=== PATIENT | male | born 1955 | race Caucasian/White ===

== ENCOUNTER 2021-03-29 17:12 | Inpatient (IN) ==
[2021-03-29 17:51] LABS: Basophils % 0.4 %; Eosinophils % 0.4 %; Hematocrit 33.5 % (37.5-50.1); Hemoglobin 10.9 g/dL (12.9-16.9); Immature Granulocytes % 0.4 % (0-4); Lymphocytes # 1.4 K/mcL (0.6-4.6); Lymphocytes % 13.6 %; Mean Corpuscular HGB Conc 32.5 g/dL (31.6-35.5); Mean Corpuscular Hemoglobin 27.1 pg (28.0-33.3); Mean Corpuscular Volume 83.3 fL (83.0-100.0); Mean Platelet Volume 11.3 fL (9.4-12.4); Monocytes # 0.9 K/mcL (0.0-1.3); Monocytes % 8.3 %; Neutrophils # 8.1 K/mcL (1.6-8.9); Platelet Count 130 K/mcL (140-400); Red Blood Count 4.02 M/mcL (4.19-5.50); Segmented Neutrophils % 76.9 %; White Blood Count 10.5 K/mcL (4.3-11.1)
[2021-03-29] MEDS ORDERED: Isovue-370 500 ML BOTTLE IVP ONE (17:58)
[2021-03-29] MEDS ORDERED: *HR* FentaNYL (PF) 100 MCG/2 ML VIAL IVP ONE (18:00)
[2021-03-29] MEDS ORDERED: 0.9 % Sodium Chloride 1,000 ML IVC ONE (18:00)
[2021-03-29 18:09] LABS: Activated Partial Thrombo Time 27.2 Seconds (26.0-36.0)
[2021-03-29 18:15] LABS: INR 1.2; Prothrombin Time 14.3 Seconds (9.4-12.1)
[2021-03-29 18:28] LABS: BUN/Creatinine Ratio 14 (6-26); Blood Urea Nitrogen 12 mg/dL (8-23); Calcium 8.6 mg/dL (8.6-10.3); Carbon Dioxide 26 mEq/L (23-29); Chloride 101 mEq/L (98-107); Glucose 259 mg/dL (70-105); Osmolality,Calculated 289 (280-300); Potassium 3.7 mEq/L (3.5-5.1); Sodium 135 mEq/L (136-145); Troponin I 0.23 ng/mL (< 0.04); eGFR For African Americans > 60 (> 60); eGFR For Non-African Americans > 60 (> 60)
[2021-03-29] MEDS ORDERED: cefTRIAXone 1,000 MG in Water for inj. (sterile) 10 ML IVP ONE (19:31)
[2021-03-29] MEDS ORDERED: Azithromycin 500 MG in 0.9 % Sodium Chloride 250 ML IVPB ONE (19:31)
[2021-03-29] MEDS ORDERED: Aspirin 325 MG TABLET PO ONE (20:53)
[2021-03-29] MEDS ORDERED: Ipratropium/Albuterol Neb 3 ML IH PRN (21:03)
[2021-03-29] MEDS ORDERED: Ondansetron 4 MG/2 ML VIAL IVP PRN (21:04)
[2021-03-29] MEDS ORDERED: D5% in Water 1,000 ML IVC PRN (21:04)
[2021-03-29] MEDS ORDERED: Dextrose Gel 15 GM/37.5 ML TUBE PO PRN ×2 (21:04)
[2021-03-29] MEDS ORDERED: *HR* Dextrose 50 % in Water (Vial) 50 ML VIAL IVP PRN (21:04)
[2021-03-29] MEDS ORDERED: Naloxone 0.4 MG/ML INJ IVP PRN (21:04)
[2021-03-29] MEDS ORDERED: Acetaminophen 325 MG TABLET PO PRN (21:04)
[2021-03-29] MEDS ORDERED: Insulin LISPRO 300 UNITS/3 ML VIAL SUBQ SCH (21:15)
[2021-03-29] MEDS ORDERED: Perflutren Lipid Microsphere 1.3 ML in 0.9 % Sodium Chloride 8.7 ML IVP PRN (22:08)
[2021-03-29] MEDS: Insulin LISPRO 300 UNITS/3 ML VIAL SUBQ SCH (22:37)
[2021-03-29] MEDS: *HR* HYDROcodone/Acet 5/325 mg TABLET PO PRN (22:50)
[2021-03-30 00:47] LABS: Basophils % 0.3 %; Eosinophils % 0.2 %; Hemoglobin 10.7 g/dL (12.9-16.9); Immature Granulocytes % 0.3 % (0-4); Lymphocytes # 1.4 K/mcL (0.6-4.6); Mean Corpuscular HGB Conc 33.4 g/dL (31.6-35.5); Mean Corpuscular Hemoglobin 27.9 pg (28.0-33.3); Mean Corpuscular Volume 83.6 fL (83.0-100.0); Mean Platelet Volume 11.6 fL (9.4-12.4); Monocytes # 0.9 K/mcL (0.0-1.3); Monocytes % 8.7 %; Neutrophils # 8.3 K/mcL (1.6-8.9); Platelet Count 132 K/mcL (140-400); Red Blood Count 3.83 M/mcL (4.19-5.50); Red Cell Distribution Width 13.1 % (11.5-14.5); Segmented Neutrophils % 77.5 %; White Blood Count 10.6 K/mcL (4.3-11.1)
[2021-03-30 01:08] LABS: % Iron Saturation 5 % (20-55); Alanine Aminotransferase 15 Units/L (7-52); Albumin 3.7 g/dL (3.5-5.7); Albumin/Globulin Ratio 1.3 (1.1-2.2); Alkaline Phosphatase 63 Units/L (34-104); Aspartate Amino Transferase 25 Units/L (13-39); BUN/Creatinine Ratio 14 (6-26); Bilirubin,Total 0.7 mg/dL (0.3-1.0); Blood Urea Nitrogen 11 mg/dL (8-23); Calcium 8.2 mg/dL (8.6-10.3); Carbon Dioxide 27 mEq/L (23-29); Chloride 103 mEq/L (98-107); Chol/HDL Ratio 2.8 (0-4.9); Cholesterol 102 mg/dL (< 200); Globulin 2.8 g/dL (2.4-3.5); Glucose 201 mg/dL (70-105); HDL Cholesterol 36 mg/dL (40-59); Iron 14 mcg/dL (65-175); LDL Cholesterol,Calculated 56 mg/dL (< 100); Magnesium 1.9 mg/dL (1.6-2.6); Osmolality,Calculated 289 (280-300); Potassium 3.9 mEq/L (3.5-5.1); Sodium 137 mEq/L (136-145); Total Protein 6.5 g/dL (6.4-8.9); Transferrin 212 mg/dL (203-362); Triglycerides 50 mg/dL (< 150); eGFR For African Americans > 60 (> 60); eGFR For Non-African Americans > 60 (> 60)
[2021-03-30 01:20] LABS: Thyroid Stimulating Hormone 0.904 mcIU/mL (0.340-5.600)
[2021-03-30 01:26] LABS: Ferritin 43 ng/mL (20-250)
[2021-03-30 02:42] LABS: Estimated Average Glucose 154 mg/dl
[2021-03-30] MEDS ORDERED: Pantoprazole 40 MG VIAL IVP SCH (06:00)
[2021-03-30] MEDS ORDERED: *HR* Heparin 5,000 UNIT/ML VIAL IVP PRN ×2 (07:20)
[2021-03-30] MEDS ORDERED: *HR* Heparin 5,000 UNIT/ML VIAL IVP ONE (07:20)
[2021-03-30] MEDS ORDERED: Heparin 25,000UNIT/250ML 1/2NS 25,000 UNIT/250 ML IV.SOLN IVC SCH (07:30)
[2021-03-30] MEDS ORDERED: carvediloL 25 MG TABLET PO SCH (08:00)
[2021-03-30 08:55] LABS: Hematocrit 32.6 % (37.5-50.1); Hemoglobin 10.6 g/dL (12.9-16.9); Mean Corpuscular HGB Conc 32.5 g/dL (31.6-35.5); Mean Corpuscular Hemoglobin 27.5 pg (28.0-33.3); Mean Corpuscular Volume 84.7 fL (83.0-100.0); Mean Platelet Volume 11.4 fL (9.4-12.4); Platelet Count 130 K/mcL (140-400); Red Blood Count 3.85 M/mcL (4.19-5.50); Red Cell Distribution Width 13.2 % (11.5-14.5); White Blood Count 9.7 K/mcL (4.3-11.1)
[2021-03-30 09:00] LABS: Heparin anti-factor XA UFH < 0.04 IU/mL (0.30-0.70)
[2021-03-30] MEDS ORDERED: cefTRIAXone 1,000 MG in 0.9 % Sodium Chloride Mini Bag 100 ML IVPB SCH (09:00)
[2021-03-30] MEDS ORDERED: Isosorbide MONOnitrate (24 HR) 60 MG TAB.ER.24H PO SCH (09:00)
[2021-03-30] MEDS ORDERED: lisinopriL 5 MG TABLET PO SCH (09:00)
[2021-03-30] MEDS ORDERED: Aspirin Enteric Coated 81 MG Tablet PO SCH (09:00)
[2021-03-30] MEDS ORDERED: Ranolazine 500 MG TAB.ER.12H PO SCH (09:00)
[2021-03-30] MEDS ORDERED: Azithromycin 500 MG in 0.9 % Sodium Chloride 250 ML IVPB SCH (09:00)
[2021-03-30] MEDS ORDERED: Cholecalciferol (D-3) 1,000 UNIT (25MCG) TABLET PO SCH (09:00)
[2021-03-30 09:01] LABS: INR 1.4; Prothrombin Time 15.9 Seconds (9.4-12.1)
[2021-03-30] MEDS: *HR* HYDROcodone/Acet 5/325 mg TABLET PO PRN (09:24)
[2021-03-30] MEDS: Insulin LISPRO 300 UNITS/3 ML VIAL SUBQ SCH ×2 (09:26→12:34)
[2021-03-30] MEDS ORDERED: *HR* HYDROcodone/Acet 5/325 mg TABLET PO STA (11:38)
[2021-03-30] MEDS ORDERED: Morphine Sulfate 2 MG/ML SYRINGE IVP ONE (11:56)
[2021-03-30 11:59] VITALS: BP 133/75
[2021-03-30] MEDS ORDERED: amLODIPine 5 MG TABLET PO SCH (18:00)
== END 2021-03-30 12:16 | disposition short-term general hospital (02) | DRG 193 ==
LOC: 2ANU 17:12 → EMEROOARM 17:12 → 2ANU 22:32
PROVIDERS: ADMIT Internal Medicine; ATTEND Internal Medicine